=== PATIENT | female | born 1965 | race Caucasian/White ===

== ENCOUNTER 2022-03-29 10:31 | Emergency (ER) | payer OTHER ==
[~2022-03-29] VITALS: Ht 154.9 cm; Wt 65.8 kg
[2022-03-29 10:51] VITALS: BP 114/73
--- NOTE | 2022-03-29 10:51 | NUR ---
Pt ambulated to bed 05.
[2022-03-29] MEDS ORDERED: KETOROLAC 30 MG/ML VIAL IM ONE (11:35)
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
[2022-03-29] MEDS ORDERED: LID5T TP (12:36)
[2022-03-29] MEDS ORDERED: CYCL-711 PO (12:36)
[2022-03-29] MEDS ORDERED: IBUP-2213 PO (12:36)
[2022-03-29 13:05] VITALS: BP 114/73
--- NOTE | 2022-03-29 13:25 | NUR ---
Patient discharged with v/s stable. Written and verbal after care instructions given and explained. Patient alert, oriented and verbalized understanding of instructions. Ambulatory with steady gait. All questions addressed prior to discharge. ID band removed. Patient advised to follow up with PMD. Rx of FLEXERIL, IBUPROFEN, AND LIDODERM PATCH given. Patient educated on indication of medication including possible reaction and side effects. Opportunity to ask questions provided and answered.
--- NOTE | 2022-03-29 13:35 | NUR ---
The patient's care was reviewed and supervised by Roseanne Travis RN.
== END 2022-03-29 13:25 | disposition home or self-care (01) ==
LOC: MED 10:31
DX: S39.012A Strain of muscle, fascia and tendon of lower back, initial encounter (principal); M25.59 Pain in other specified joint; R31.9 Hematuria, unspecified; F17.200 Nicotine dependence, unspecified, uncomplicated; X58.XXXA Exposure to other specified factors, initial encounter; Y93.89 Activity, other specified; Y92.89 Other specified places as the place of occurrence of the external cause; Y99.8 Other external cause status
CPT/HCPCS: 81002; 81025; 96372; 99283; J1885